=== PATIENT | male | born 2000 | race Hispanic/Latino ===

== ENCOUNTER 2018-06-19 20:43 | Emergency (ER) | payer BC ==
[~2018-06-19] VITALS: Ht 177.8 cm; Wt 117.0 kg
--- OUTSIDE RECORDS SUMMARY | 2018-06-19 20:45 | XMS REPORT | Summary of Care ---
Author Author [facility] Organization [facility] Address Unknown Phone Unavailable Encounter HQ Dion(EBONIE) [id number] Date(s): 12/01/15 - 12/01/15 [facility] [address] [place] [address]- Discharge Disposition: Home or Self Care Attending Physician: Pepe Christopher MD Referring Physician: Pepe Christopher MD Vital Signs 1 2 3 Most recent to oldest [Reference Range]: 175.26 cm (12/01/15 7:49 AM) Height 98.4 DegF (12/01/15 7:58 AM) Temperature Oral [96.8-99.7 DegF] 134/86 mmHg (12/01/15 2:00 PM) 145/87 mmHg *HI* (12/01/15 1:30 PM) 144/88 mmHg *HI* (12/01/15 1:15 PM) Blood Pressure [90-138/45-84 mmHg] 17 BRMIN (12/01/15 1:15 PM) 16 BRMIN (12/01/15 1:00 PM) 13 BRMIN *LOW* (12/01/15 12:45 PM) Respiratory Rate [14-20 BRMIN] 78 bpm (12/01/15 7:58 AM) Peripheral Pulse Rate [55-90 bpm] 125.636 kg (12/01/15 7:49 AM) Weight 40.9 m2 (12/01/15 7:49 AM) Body Mass Index Problem List Condition Effective Dates Status Health Status Informant Fungal infection of Resolved skin(Confirmed) Hx of Resolved bronchitis(Confirmed ) Seasonal Resolved allergies(Confirmed) Allergies, Adverse Reactions, Alerts Substance Reaction Severity Status Food Shellfish Active NKDA Active Medications Ancef 2 gm, 100 mL, Route: IVPB, Drug form: INJ, ONCALL, Dosing Weight 125.636, kg, St art date: 12/01/15 10:00:00 CDT, Duration: 30 day, Stop date: 12/31/15 9:59:00 C DT Notes: Same as: Ancef Start Date: 12/01/15 Stop Date: 12/02/15 Status: Discontinued ANES acetaminophen 1,000 mg, 2 tab, Route: PO, Drug form: TAB, ONCE, Dosing Weight 125.636, kg, PRN Pain Score 1-3, Start date: 12/01/15 12:55:00 CDT, Duration: 1 doses or times, Stop date: Limited # of times Notes: Max acetaminophen 4000 mg/day (4 gm/day). (Same as: Tylenol Extra Streng th) Start Date: 12/01/15 Stop Date: 12/02/15 Status: Discontinued ANES fentaNYL 50 microgram, Route: IVP, Q5Min, Dosing Weight 125.636, kg, PRN Pain Score 7-10, Start date: 12/01/15 12:55:00 CDT, Duration: 2 doses or times, Stop date: Limit ed # of times Start Date: 12/01/15 Stop Date: 12/01/15 Status: Completed ANES fentaNYL 25 microgram, 0.5 mL, Route: IVP, Drug form: INJ, Q5Min, Dosing Weight 125.636, kg, PRN Pain Score 4-6, Start date: 12/01/15 12:55:00 CDT, Duration: 4 doses or times, Stop date: Limited # of times Notes: (Same as: Sublimaze) Preservative free. Start Date: 12/01/15 Stop Date: 12/02/15 Status: Discontinued ANES flumazenil 0.2 mg, 2 mL, Route: IVP, Drug form: INJ, PRN, Dosing Weight 125.636, kg, PRN Be nzodiazepine Reversal, Initial dose, Start date: 12/01/15 12:55:00 CDT, Duration : 30 day, Stop date: 12/31/15 12:54:00 CDT Notes: (Same as: Romazicon) Start Date: 12/01/15 Stop Date: 12/02/15 Status: Discontinued ANES HYDROmorphone 0.5 mg, 0.5 mL, Route: IVP, Drug form: INJ, Q5Min, Dosing Weight 125.636, kg, AK N Pain Score 7-10, Start date: 12/01/15 12:55:00 CDT, Duration: 4 doses or times , Stop date: Limited # of times Start Date: 12/01/15 Stop Date: 12/02/15 Status: Discontinued ANES meperidine 12.5 mg, 0.25 mL, Route: IVP, Drug form: INJ, Q30Min, Dosing Weight 125.636, kg, PRN Other -See Comment, For shivering, Start date: 12/01/15 12:55:00 CDT, Durat ion: 2 doses or times, Stop date: Limited # of times Notes: (Same As: Demerol) Start Date: 12/01/15 Stop Date: 12/02/15 Status: Discontinued ANES naloxone 0.4 mg, 1 mL, Route: IVP, Drug form: INJ, Q2MIN, Dosing Weight 125.636, kg, PRN Narcotic Reversal, Start date: 12/01/15 12:55:00 CDT, Duration: 8 doses or times , Stop date: Limited # of times Notes: Same as Narcan Start Date: 12/01/15 Stop Date: 12/02/15 Status: Discontinued ANES ondansetron 4 mg, 2 mL, Route: IVP, Drug form: INJ, ONCE, Dosing Weight 125.636, kg, PRN Perez sea & Vomiting, Start date: 12/01/15 12:55:00 CDT Notes: (Same as: Jeaneth) MEDICATION WASTE Product Size: 4 mgProduct Was brisa: ___ mg Start Date: 12/01/15 Stop Date: 12/02/15 Status: Discontinued ANES oxyCODONE 10 mg, 2 tab, Route: PO, Drug form: TAB, Q4H, Dosing Weight 125.636, kg, PRN Dianna n Score 7-10, Start date: 12/01/15 12:55:00 CDT, Duration: 30 day, Stop date: 12:54:00 CDT Notes: (Same as: Roxicodone) Start Date: 12/01/15 Stop Date: 12/02/15 Status: Discontinued ceFAZolin (ANES) Route: IV, Drug form: INJ, ONCE, Stop date: 12/01/15 11:09:00 CDT Start Date: 12/01/15 Stop Date: 12/01/15 Status: Completed dexamethasone (ANES) Route: IV, Drug form: INJ, ONCE, Stop date: 12/01/15 11:14:00 CDT Start Date: 12/01/15 Stop Date: 12/01/15 Status: Completed dexmethylphenidate extended release PO, QAM, 0 Refill(s) Start Date: 12/01/15 Status: Ordered diphenhydrAMINE (ANES) Route: IV, Drug form: INJ, ONCE, Stop date: 12/01/15 11:14:00 CDT Start Date: 12/01/15 Stop Date: 12/01/15 Status: Completed fentaNYL (ANES) Route: IV, Drug form: INJ, ONCE, Stop date: 12/01/15 11:09:00 CDT Start Date: 12/01/15 Stop Date: 12/01/15 Status: Completed Flonase 0.05 mg/inh nasal spray 1 spray, NASAL, Daily, PRN Allergies, 0 Refill(s) Start Date: 12/01/15 Status: Ordered griseofulvin microcrystalline 500 mg oral tablet 500 mg=1 tab, PO, BID, 0 Refill(s) Start Date: 12/01/15 Status: Ordered Lactated Ringers 1,000 mL 1,000 mL, Rate: 25 ml/hr, Infuse over: 40 hr, Route: IV, Dosing Weight 125.636 k g, Total Volume: 1,000, Start date: 12/01/15 8:54:00 CDT, Duration: 1 day, Stop date: 12/02/15 8:53:00 CDT Start Date: 12/01/15 Stop Date: 12/01/15 Status: Discontinued lidocaine (ANES) Route: IV, Drug form: INJ, ONCE, Stop date: 12/01/15 11:09:00 CDT Start Date: 12/01/15 Stop Date: 12/01/15 Status: Completed LR 1000 mL INJ (ANES) Route: IV, Total Volume: 1,000, Start date: 12/01/15 10:13:00 CDT, Stop date: 11:13:00 CDT Start Date: 12/01/15 Stop Date: 12/01/15 Status: Completed meloxicam 7.5 mg oral tablet 7.5 mg=1 tab, PO, Daily, # 30 tab, 0 Refill(s) Start Date: 12/01/15 Status: Ordered metoclopramide (ANES) Route: IV, Drug form: INJ, ONCE, Stop date: 12/01/15 11:14:00 CDT Start Date: 12/01/15 Stop Date: 12/01/15 Status: Completed midazolam (ANES) Route: IV, Drug form: SOLN, ONCE, Stop date: 12/01/15 11:04:00 CDT Start Date: 12/01/15 Stop Date: 12/01/15 Status: Completed morphine Sulfate 2 mg, 1 mL, Route: IVP, Drug form: INJ, Q3H, Dosing Weight 125.636, kg, PRN Pain Score 1-3, Start date: 12/01/15 13:14:00 CDT, Duration: 30 day, Stop date: 12/07 08/20 13:13:00 CDT Notes: (Same as:MORPhine Sulfate) Start Date: 12/01/15 Stop Date: 12/02/15 Status: Discontinued ondansetron (ANES) Route: IV, Drug form: INJ, ONCE, Stop date: 12/01/15 11:14:00 CDT Start Date: 12/01/15 Stop Date: 12/01/15 Status: Completed oxyCODONE 5 mg oral tablet 5 mg, Route: PO, Drug form: TAB, ONCE, Dosing Weight 125.636, kg, PRN Pain Score 4-6, Start date: 12/01/15 13:32:00 CDT Start Date: 12/01/15 Stop Date: 12/01/15 Status: Completed Percocet 5/325 oral tablet 2 tab, Route: PO, Drug Form: TAB, Dosing Weight 125.636, kg, Q4H, PRN Pain Score 7-10, Start date: 12/01/15 13:14:00 CDT, Duration: 30 day, Stop date: 12/31/15 13:13:00 CDT Notes: Do not exceed 4gm/day of acetaminophen. (Same as: Percocet-5/325) Start Date: 12/01/15 Stop Date: 12/02/15 Status: Discontinued propofol (ANES) Route: IV, Drug form: INJ, ONCE, Stop date: 12/01/15 11:09:00 CDT Start Date: 12/01/15 Stop Date: 12/01/15 Status: Completed Ropivacaine 0.2% 400ML OnQ CB004 400 mL Dosing: Per Nerve Block Dosing Order, Route: NERVE BLOCK, Start date: 12/01/15 1 2:46:00 CDT 400 mL, Drug Form: INJ, Dosing Weight 125.636, kg, Duration: 30 day, Stop date: 12/31/15 12:45:00 CDT Notes: Final concentration: Ropivacaine 0.2% 400 ml Start Date: 12/01/15 Stop Date: 12/02/15 Status: Discontinued Zofran 4 mg, 2 mL, Route: IV, Drug form: INJ, Q8H, Dosing Weight 125.636, kg, PRN Nause a, Start date: 12/01/15 13:14:00 CDT, Duration: 30 day, Stop date: 12/31/15 13:1 3:00 CDT Notes: (Same as: Zofran) MEDICATION WASTE Product Size: 4 mgProduct Was brisa: ___ mg Start Date: 12/01/15 Stop Date: 12/02/15 Status: Discontinued ZyrTEC 10 mg oral tablet 10 mg=1 tab, PO, Daily, PRN Allergic reaction, # 10 tab, 0 Refill(s) Start Date: 12/01/15 Stop Date: 12/11/15 Status: Ordered Results No data available for this section Immunizations No data available for this section Procedures Procedure Date Related Diagnosis Body Site ORIF - Open reduction and internal fixation of fracture Social History Social History Type Response Smoking Status Never smoker; Previous treatment: None; Exposure to Tobacco Smoke None; Cigarette Smoking Last 365 Days No; Reg Smoking Cessation Counseling No Assessment and Plan No data available for this section
--- OUTSIDE RECORDS SUMMARY | 2018-06-19 20:45 | XMS REPORT | Summary of Care ---
Author Author [facility] [place] Address Unknown Phone Unavailable Encounter HQ Encntr_alias(FIN) [id number] Date(s): 11/24/15 - 11/24/15 [facility] [place] [id number] [place] [address], [address] [facility] NAIFSA caballero [id number]- [phone] Discharge Disposition: Home or Self Care Attending Physician: Jefferson Toribio MD Vital Signs No data available for this section Problem List No data available for this section Allergies, Adverse Reactions, Alerts No data available for this section Medications No data available for this section Results No data available for this section Immunizations No data available for this section Procedures No data available for this section Social History No data available for this section Assessment and Plan No data available for this section
--- OUTSIDE RECORDS SUMMARY | 2018-06-19 20:45 | XMS REPORT | Continuity of Care Document ---
Author Author [facility] Address Unknown Phone Unavailable Problems Problem Status Onset Date Classification Date Reported Comments Source UNK Active 11/29/2015 [facility] M25.462 - "EFFUSION, LEFT KNEE" M23.9 - Active 11/24/2015 ANDRES Thurman Fungal infection of skin Resolved Problem 04/09/2016 [facility] Hx of bronchitis Resolved Problem 04/09/2016 [facility] Seasonal allergies Resolved Problem 04/09/2016 [facility] LT KNEE [facility] KNEE ACL TEAR Active [facility] Medications Medication Details Route Status Patient Instructions Ordering Provider Order Date Source Oxycodone Hydrochloride 5 MG Oral Tablet 5 mg, Route: PO, Drug form: TAB, ONCE, Dosing Weight 125.636, kg, PRN Pain Score 4-6, Start date: 12/01/15 13:32:00 CDT Inactive 12/01/2015 [facility] Zofran 4 mg, 2 mL, Route: IV, Drug form: INJ, Q8H, Dosing Weight 125.636, kg, PRN Nausea, Start date: 12/01/15 13:14:00 CDT, Duration: 30 day, Stop date: 12/31/15 13:13:00 CDTNotes: (Same as: Zofran) MEDICATION WASTE Product Size: 4 mg Product Wasted: ___ mg No Longer Active 12/01/2015 [facility] Acetaminophen 325 MG / Oxycodone Hydrochloride 5 MG Oral Tablet [Percocet 5/325] 2 tab, Route: PO, Drug Form: TAB, Dosing Weight 125.636, kg, Q4H, PRN Pain Score 7-10, Start date: 12/01/15 13:14:00 CDT, Duration: 30 day, Stop date: 12/31/15 13:13:00 CDTNotes: Do not exceed 4gm/day of acetaminophen. (Same as: Percocet-5/325) No Longer Active 12/01/2015 [facility] Morphine 2 mg, 1 mL, Route: IVP, Drug form: INJ, Q3H, Dosing Weight 125.636, kg, PRN Pain Score 1-3, Start date: 12/01/15 13:14:00 CDT, Duration: 30 day, Stop date: 12/31/15 13:13:00 CDTNotes: (Same as:MORPhine Sulfate) No Longer Active 12/01/2015 [facility] Ondansetron 4 mg, 2 mL, Route: IVP, Drug form: INJ, ONCE, Dosing Weight 125.636, kg, PRN Nausea & Vomiting, Start date: 12/01/15 12:55:00 CDTNotes: (Same as: Zofran) MEDICATION WASTE Product Size: 4 mg Product Wasted: ___ mg No Longer Active 12/01/2015 [facility] Meperidine 12.5 mg, 0.25 mL, Route: IVP, Drug form: INJ, Q30Min, Dosing Weight 125.636, kg, PRN Other -See Comment, For shivering, Start date: 12/01/15 12:55:00 CDT, Duration: 2 doses or times, Stop date: Limited # of timesNotes: (Same As: Demerol) No Longer Active 12/01/2015 [facility] Naloxone 0.4 mg, 1 mL, Route: IVP, Drug form: INJ, Q2MIN, Dosing Weight 125.636, kg, PRN Narcotic Reversal, Start date: 12/01/15 12:55:00 CDT, Duration: 8 doses or times, Stop date: Limited # of timesNotes: Same as Narcan No Longer Active 12/01/2015 [facility] Acetaminophen 1,000 mg, 2 tab, Route: PO, Drug form: TAB, ONCE, Dosing Weight 125.636, kg, PRN Pain Score 1-3, Start date: 12/01/15 12:55:00 CDT, Duration: 1 doses or times, Stop date: Limited # of timesNotes: Max acetaminophen 4000 mg/day (4 gm/day). (Same as: Tylenol Extra Strength) No Longer Active 12/01/2015 [facility] Fentanyl 50 microgram, Route: IVP, Q5Min, Dosing Weight 125.636, kg, PRN Pain Score 7-10, Start date: 12/01/15 12:55:00 CDT, Duration: 2 doses or times, Stop date: Limited # of times Inactive 12/01/2015 [facility] Flumazenil 0.2 mg, 2 mL, Route: IVP, Drug form: INJ, PRN, Dosing Weight 125.636, kg, PRN Benzodiazepine Reversal, Initial dose, Start date: 12/01/15 12:55:00 CDT, Duration: 30 day, Stop date: 12/31/15 12:54:00 CDTNotes: (Same as: Romazicon) No Longer Active 12/01/2015 [facility] Hydromorphone 0.5 mg, 0.5 mL, Route: IVP, Drug form: INJ, Q5Min, Dosing Weight 125.636, kg, PRN Pain Score 7-10, Start date: 12/01/15 12:55:00 CDT, Duration: 4 doses or times, Stop date: Limited # of times No Longer Active 12/01/2015 [facility] Oxycodone 10 mg, 2 tab, Route: PO, Drug form: TAB, Q4H, Dosing Weight 125.636, kg, PRN Pain Score 7-10, Start date: 12/01/15 12:55:00 CDT, Duration: 30 day, Stop date: 12/31/15 12:54:00 CDTNotes: (Same as: Cristy icodone) No Longer Active 12/01/2015 [facility] ropivacaine Dosing: Per Nerve Block Dosing Order, Route: NERVE BLOCK, Start date: 12/01/15 12:46:00 CDT 400 mL, Drug Form: INJ, Dosing Weight 125.636, kg, Duration: 30 day, Stop date: 12/31/15 12:45:00 CDTNotes: Final concentration: Ropivacaine 0.2% 400 ml No Longer Active 12/01/2015 [facility] diphenhydrAMINE (ANES) Route: IV, Drug form: INJ, ONCE, Stop date: 12/01/15 11:14:00 CDT Inactive 12/01/2015 [facility] metoclopramide (ANES) Route: IV, Drug form: INJ, ONCE, Stop date: 12/01/15 11:14:00 CDT Inactive 12/01/2015 [facility] dexamethasone (ANES) Route: IV, Drug form: INJ, ONCE, Stop date: 12/01/15 11:14:00 CDT Inactive 12/01/2015 [facility] ondansetron (ANES) Route: IV, Drug form: INJ, ONCE, Stop date: 12/01/15 11:14:00 CDT Inactive 12/01/2015 [facility] lidocaine (ANES) Route: IV, Drug form: INJ, ONCE, Stop date: 12/01/15 11:09:00 CDT Inactive 12/01/2015 [facility] ceFAZolin (ANES) Route: IV, Drug form: INJ, ONCE, Stop date: 12/01/15 11:09:00 CDT Inactive 12/01/2015 [facility] fentaNYL (ANES) Route: IV, Drug form: INJ, ONCE, Stop date: 12/01/15 11:09:00 CDT Inactive 12/01/2015 [facility] propofol (ANES) Route: IV, Drug form: INJ, ONCE, Stop date: 12/01/15 11:09:00 CDT Inactive 12/01/2015 [facility] midazolam (ANES) Route: IV, Drug form: SOLN, ONCE, Stop date: 12/01/15 11:04:00 CDT Inactive 12/01/2015 [facility] LR 1000 mL INJ (ANES) Route: IV, Total Volume: 1,000, Start date: 12/01/15 10:13:00 CDT, Stop date: 12/01/15 11:13:00 CDT Inactive 12/01/2015 [facility] Ancef 2 gm, 100 mL, Route: IVPB, Drug form: INJ, ONCALL, Dosing Weight 125.636, kg, Start date: 12/01/15 10:00:00 CDT, Duration: 30 day, Stop date: 12/31/15 9:59:00 CDTNotes: Same as: Ancef No Longer Active 12/01/2015 [facility] Calcium Chloride 0.0014 MEQ/ML / Potassium Chloride 0.004 MEQ/ML / Sodium Chloride 0.103 MEQ/ML / Sodium Lactate 0.028 MEQ/ML Injectable Solution 1,000 mL, Rate: 25 ml/hr, Infuse over: 40 hr, Route: IV, Dosing Weight 125.636 kg, Total Volume: 1,000, Start date: 12/01/15 8:54:00 CDT, Duration: 1 day, Stop date: 12/02/15 8:53:00 CDT Inactive 12/01/2015 [facility] Flonase 0.05 mg/inh nasal spray 1 spray, NASAL, Daily, PRN Allergies, 0 Refill(s) Active 12/01/2015 [facility] cetirizine hydrochloride 10 MG Oral Tablet [Zyrtec] 10 mg=1 tab, PO, Daily, PRN Allergic reaction, # 10 tab, 0 Refill(s) Active 12/01/2015 [facility] dexmethylphenidate extended release PO, QAM, 0 Refill(s) Active 12/01/2015 [facility] griseofulvin microcrystalline 500 mg oral tablet 500 mg=1 tab, PO, BID, 0 Refill(s) Active 12/01/2015 [facility] meloxicam 7.5 mg oral tablet 7.5 mg=1 tab, PO, Daily, # 30 tab, 0 Refill(s) Active 12/01/2015 [facility] Allergies, Adverse Reactions, Alerts Substance Category Reaction Severity Reaction type Status Date Reported Comments Source Food Shellfish Assertion Propensity to adverse reactions to food Active [facility] Cascade Immunizations Immunization Date Given Site Status Last Updated Comments Source Results Order Name Results Value Reference Range Date Interpretation Comments Source Knee wo contrast MRI Knee wo contrast MRI MR LEFT KNEE WITHOUT CONTRAST HISTORY: M25.562 Pain in left knee, effusion of bursa of the left, knee internal derangement left, 15-year-old male reports left knee pain laterally for approximately 7 days after injury playing football, pain with knee extension and flexion COMPARISON: None available TECHNIQUE: Multiplanar, multisequence noncontrast imaging of the knee. FINDINGS: MENISCI: 1. Medial meniscus: Intact. 2. Lateral meniscus: Intact. CARTILAGE: 3. Medial compartment cartilage: Normal. 4. Lateral compartment cartilage: Normal. 5. Patellofemoral cartilage: Normal. CRUCIATE LIGAMENTS: 6. Anterior cruciate ligament: Complete tear of the ACL near its femoral attachment. 7. Posterior cruciate ligament: Normal. COLLATERAL LIGAMENTS: 8. Medial collateral ligament complex: Normal. 9. Lateral collateral ligament complex: Normal. EXTENSOR MECHANISM: 10. Intact patellar and quadriceps tendons. 11. No patellar tilt or subluxation. OTHER: 12. Grade 1 popliteus myotendinous strain. No popliteus tendon tear. 13. Grade 1 strain at the origin of the soleus muscle. Popliteofibular ligament is intact. 14. Bone contusions of the anterior lateral femoral condyle and posterior lateral tibial plateau, typical of ACL injury. 15. Bone contusion of the posterior aspect of the medial tibial plateau. 16. Small joint effusion is present. IMPRESSION: 1. Complete tear of the ACL. 2. No meniscus tear. 3. Grade 1 popliteus myotendinous strain. 4. Grade 1 strain of the proximal soleus muscle. 5. Bone contusions of the lateral femoral condyle, lateral tibial plateau, and medial tibial plateau. Thank you for referring your patient to [facility]. SL: [id number] 11/24/2015 - - Read by: Jefferson Peterson MD Dictated Date/time: 11/24/15 17:12 Electronically Signed by: Jefferson Peterson MD 11/24/15 17:21 FINAL REPORT [facility] Vital Signs Vital Sign Value Date Comments Source Systolic (mm Hg) 134 12/01/2015 [facility] Diastolic (mm Hg) 86 12/01/2015 [facility] Systolic (mm Hg) 145 12/01/2015 [facility] Diastolic (mm Hg) 87 12/01/2015 [facility] Systolic (mm Hg) 144 12/01/2015 [facility] Diastolic (mm Hg) 88 12/01/2015 [facility] Respitory Rate 17 12/01/2015 [facility] Respitory Rate 16 12/01/2015 [facility] Respitory Rate 13 12/01/2015 [facility] Heart Rate 78 12/01/2015 [facility] Temperature Oral (F) 98.4 F 12/01/2015 [facility] BMI Calculated 40.9 12/01/2015 [facility] Weight 125.636 12/01/2015 [facility] Height 175.26 cm 12/01/2015 [facility] Encounters Location Location Details Encounter Type Encounter Number Reason For Visit Attending Provider ADM Date DC Date Status Source [facility] [place] [facility] [id number] Jefferson Castillo 11/24/2015 11/25/2015 JI CAMPOS [facility] Day Surgery [id number] Pepe Hsieh Jr 12/01/2015 12/01/2015 [facility] [id number] Pepe Hsieh Jr 12/06/2015 01/05/2016 [facility] OP Therapy Patients [id number] Pepe Hsieh Jr 01/09/2016 02/08/2016 [facility] OP Therapy Patients [id number] Pepe Hsieh Jr 03/08/2016 04/07/2016 [facility] Procedures Procedure Code Date Perfomer Comments Source ORIF - Open reduction and internal fixation of fracture [id number] [facility] ORIF - Open reduction and internal fixation of fracture [id number] [facility]
--- OUTSIDE RECORDS SUMMARY | 2018-06-19 20:45 | XMS REPORT | Summary of Care ---
Author Author [facility] Address Unknown Phone Unavailable Encounter HQ Encntr_alijustin(FIN) [id number] Date(s): 12/06/15 - 01/04/16 [facility] Discharge Disposition: Home or Self Care Attending Physician: Pepe Christopher MD Vital Signs No data available for this section Problem List Condition Effective Dates Status Health Status Informant Fungal infection of Resolved skin(Confirmed) Hx of Resolved bronchitis(Confirmed ) Seasonal Resolved allergies(Confirmed) Allergies, Adverse Reactions, Alerts Substance Reaction Severity Status Food Shellfish Active NKDA Active Medications No data available for this section [...]
--- OUTSIDE RECORDS SUMMARY | 2018-06-19 20:45 | XMS REPORT | Summary of Care ---
Author Author [facility] Address Unknown Phone Unavailable Encounter HQ Encntr_alijustin(FIN) [id number] Date(s): 03/08/16 - 04/06/16 [facility] Discharge Disposition: Home or Self Care Attending [...]
--- OUTSIDE RECORDS SUMMARY | 2018-06-19 20:45 | XMS REPORT | Summary of Care ---
Author Author [facility] Address Unknown Phone Unavailable Encounter HQ Encntr_misael(FIN) [id number] Date(s): 01/09/16 - 02/07/16 [facility] Discharge Disposition: Home or Self Care Attending [...]
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
[2018-06-20 05:43] VITALS: BP 140/93
== END 2018-06-19 22:45 | disposition home or self-care (01) ==
LOC: ER 20:43
DX: M25.522 Pain in left elbow (principal); M79.632 Pain in left forearm; M79.642 Pain in left hand; V47.5XXA Car driver injured in collision with fixed or stationary object in traffic accident, initial encounter; Y92.488 Other paved roadways as the place of occurrence of the external cause